=== PATIENT | female | born 2000 ===

== ENCOUNTER 2023-06-14 00:25 | Inpatient (IN) | payer BC, OTHER ==
[2023-06-14] MEDS ORDERED: Ondansetron 4 MG/2 ML SDV IVPUSH PRN (01:17)
[2023-06-14] MEDS ORDERED: Sodium Chloride 0.9% 2.5 ML Syringe FLUSH PRN (01:17)
[2023-06-14] MEDS ORDERED: Tranexamic Acid IN NACL,ISO-OS 1,000 MG in Premix Bag 1 BAG IV PRN ×2 (01:17)
[2023-06-14] MEDS ORDERED: Water For Irrigation,Sterile 1,000 ML Container IRR PRN (01:17)
[2023-06-14] MEDS ORDERED: Sodium Chloride 0.9% 20 ML SDV IV PRN (01:17)
[2023-06-14] MEDS ORDERED: Lidocaine 1% 50 ML MDV INJECT PRN (01:17)
[2023-06-14] MEDS ORDERED: Nalbuphine 10 MG/0.5 ML Syringe IVPUSH PRN (01:17)
[2023-06-14] MEDS ORDERED: Sodium Chloride 0.9% 10 ML Syringe FLUSH PRN (01:17)
[2023-06-14] MEDS ORDERED: Acetaminophen 325 MG Tab PO PRN (01:17)
[2023-06-14] MEDS ORDERED: Misoprostol 200 MCG Tab RECTAL PRN (01:17)
[2023-06-14] MEDS ORDERED: Carboprost Tromethamine 250 MCG/1 mL Vial IM PRN (01:17)
[2023-06-14] MEDS: Lactated Ringers 1,000 ML IV SCH ×3 (01:30→10:19)
[2023-06-14] MEDS ORDERED: Oxytocin/0.9 % Sodium Chloride 30 UNIT/500 ML BAG IV SCH ×2 (01:30)
[2023-06-14 01:52] LABS: HEMATOCRIT 35.9 % (37.0-47.0); HEMOGLOBIN 12.7 g/dL (12.0-16.0); MEAN CORPUSCULAR HGB CONC 35.4 g/dL (32.0-36.0); MEAN CORPUSCULAR VOLUME 84.9 fL (83.0-99.0); MEAN PLATELET VOLUME 9.7 fL (9.4-12.3); PLATELET COUNT,PLT 309 K/uL (150-400); RED BLOOD CELL COUNT 4.23 M/uL (4.10-5.30); WHITE BLOOD CELL COUNT,WBC 17.53 K/uL (3.9-11.3)
[2023-06-14] MEDS ORDERED: Ropivacaine/PF 400 MG/200 ML PCA ONE (03:02)
[2023-06-14] MEDS ORDERED: dexmedeTOMIDine HCl 200 MCG/2 ML SDV ONE (03:02)
[2023-06-14] MEDS ORDERED: Phenylephrine HCl 0.5 MG/5 ML AMP ONE (03:02)
[2023-06-14] MEDS ORDERED: Phenylephrine HCl 0.5 MG/5 ML AMP IVPUSH PRN (03:15)
[2023-06-14] MEDS ORDERED: Ropivacaine HCl/PF 400 MG in Premix Bag 1 BAG EPIDUR SCH (03:15)
[2023-06-14] MEDS ORDERED: ePHEDrine 50 MG/ML SDV IVPUSH PRN ×2 (03:15)
[2023-06-14] MEDS ORDERED: Clindamycin Phosphate in D5W 600 MG in Premix Bag 1 BAG IV ONE ×2 (05:51)
[2023-06-14] MEDS: Magnesium Oxide 400 MG Tab PO SCH (10:59)
[2023-06-14] MEDS ORDERED: diphenhydrAMINE 50 MG Cap PO PRN (13:09)
[2023-06-14] MEDS ORDERED: Witch Hazel Medicated Pads 40/Jar TOP PRN (13:09)
[2023-06-14] MEDS ORDERED: Simethicone 80 MG Tab.Chew PO PRN (13:09)
[2023-06-14] MEDS ORDERED: Lanolin 100% Cream 7 GM Tube TOP PRN (13:09)
[2023-06-14] MEDS ORDERED: Bisacodyl 10 MG Supp RECTAL PRN (13:09)
[2023-06-14] MEDS ORDERED: Benzocaine/Menthol 20%-0.5% Spray 78 GM Cannister TOP PRN (13:09)
[2023-06-14] MEDS ORDERED: Acetaminophen 500 MG Tab PO PRN (13:09)
[2023-06-14] MEDS ORDERED: Docusate Sodium 100 MG Cap PO PRN (13:09)
[2023-06-14] MEDS: Ibuprofen 800 MG Tab PO PRN ×2 (14:27→22:30)
[2023-06-15 06:25] LABS: HEMATOCRIT 26.9 % (37.0-47.0); HEMOGLOBIN 9.5 g/dL (12.0-16.0); MEAN CORPUSCULAR HEMOGLOBIN 30.1 pg (28.0-32.0); MEAN CORPUSCULAR HGB CONC 35.3 g/dL (32.0-36.0); MEAN CORPUSCULAR VOLUME 85.1 fL (83.0-99.0); MEAN PLATELET VOLUME 9.6 fL (9.4-12.3); PLATELET COUNT,PLT 213 K/uL (150-400); RED BLOOD CELL COUNT 3.16 M/uL (4.10-5.30); WHITE BLOOD CELL COUNT,WBC 18.25 K/uL (3.9-11.3)
[2023-06-15] MEDS ORDERED: Ferrous Sulfate 325 MG Tab PO SCH (08:00)
[2023-06-15] MEDS ORDERED: Prenatal Multivitamin with Calcium/Folic Acid/Iron Tab PO SCH (09:00)
[2023-06-15] MEDS ORDERED: Ascorbic Acid 500 MG Tab PO SCH (09:00)
[2023-06-15] MEDS ORDERED: [UNRECOGNIZED DRUG - REMARK] PO SCH (09:00)
[2023-06-15] MEDS: Magnesium Oxide 400 MG Tab PO SCH (09:09)
== END 2023-06-15 13:56 | disposition home or self-care (01) | DRG 560 ==
LOC: MW.OBCHECK 00:25 → MW.OB 00:25 → MW.OBCHECK 12:22 → OBSVTOIN 12:23 → MW.OB 12:23
PROVIDERS: ADMIT Obstetrics & Gynecology; ATTEND Obstetrics & Gynecology
PROC: 10E0XZZ Delivery of Products of Conception, External Approach (ICD-10-PCS; principal; 2023-06-14)
PROC: 10907ZC Drainage of Amniotic Fluid, Therapeutic from Products of Conception, Via Natural or Artificial Opening (ICD-10-PCS; 2023-06-14)
PROC: 3E0R3BZ Introduction of Anesthetic Agent into Spinal Canal, Percutaneous Approach (ICD-10-PCS; 2023-06-14)
PROC: 00HU33Z Insertion of Infusion Device into Spinal Canal, Percutaneous Approach (ICD-10-PCS; 2023-06-14)
PROC: 0KQM0ZZ Repair Perineum Muscle, Open Approach (ICD-10-PCS; 2023-06-14)
DX: O99.284 Endocrine, nutritional and metabolic diseases complicating childbirth (principal); O70.1 Second degree perineal laceration during delivery; Z37.0 Single live birth; Z3A.38 38 weeks gestation of pregnancy; E28.2 Polycystic ovarian syndrome; O90.81 Anemia of the puerperium; D62 Acute posthemorrhagic anemia; Z88.0 Allergy status to penicillin; Z88.8 Allergy status to other drugs, medicaments and biological substances
CPT/HCPCS: 36415; 51702; 59025; 59409; 85027; 86592; 86850; 86900; 86901; A9270-GY; J2001; J2371; J2590; J2795; J3490; J7120